=== PATIENT | female | born 1955 | race Caucasian/White ===

== ENCOUNTER 2024-02-14 09:42 | Inpatient (IN) | payer MEDICARE, OTHER ==
[~2024-02-14] VITALS: Ht 149.9 cm; Wt 72.6 kg
[2024-02-14] MEDS ORDERED: METO-356 PO (10:12)
[2024-02-14] MEDS ORDERED: PARO30TA4 PO (10:12)
[2024-02-14] MEDS ORDERED: EVOL420W2 SQ (10:12)
[2024-02-14] MEDS ORDERED: RANO500T6 PO (10:12)
[2024-02-14] MEDS ORDERED: NITR1PAT80 TP (10:12)
[2024-02-14 10:47] LABS: BASOPHILS % (AUTO) 0.4 % (0.0-2.0); EOSINOPHILS % (AUTO) 0.5 % (0.0-7.0); HEMATOCRIT 40.2 % (31.2-41.9); HEMOGLOBIN 13.7 g/dL (10.9-14.3); LYMPHOCYTES % (AUTO) 16.5 % (20.5-51.5); MEAN CORPUSCULAR HGB CONC 34 g/dL (32.3-35.6); MEAN CORPUSCULAR VOLUME 91.3 fL (75.5-95.3); MONOCYTES # (AUTO) 0.4 K/uL (0.1-1.30); MONOCYTES % (AUTO) 6.6 % (0.0-11.0); NEUTROPHILS # (AUTO) 4.5 K/uL (1.8-8.9); PLATELET COUNT (AUTO) 206 K/uL (179-408)
[2024-02-14 10:48] LABS: DIFFERENTIAL COMMENT 1
[2024-02-14] MEDS ORDERED: IV NORMAL SALINE 250 ML IV ONE (10:49)
[2024-02-14] MEDS ORDERED: IOHEXOL 350 100 ML INFUS..BTL ONE (10:49)
[2024-02-14] MEDS ORDERED: SWABABLE VALVE TRANSFER SET EA MC ONE (10:49)
[2024-02-14 10:50] LABS: CALCIUM 9.2 mg/dL (8.5-10.1); CARBON DIOXIDE 26 mmol/L (21-32); CHLORIDE 102 mmol/L (98-107); GLUCOSE 115 mg/dL (74-106); POTASSIUM 4.6 mmol/L (3.5-5.1); SODIUM SERUM 139 mmol/L (136-145); UREA NITROGEN, BLOOD 18 mg/dL (7-18)
[2024-02-14 11:00] LABS: ALANINE AMINOTRANSFERASE 20 U/L (14-59); ALBUMIN 4.1 g/dL (3.4-5.0); ALKALINE PHOSPHATASE 81 U/L (50-136); ASPARTATE AMINOTRANSFERASE 11 U/L (15-37); BILIRUBIN,DIRECT 0.2 mg/dL (0.0-0.2); BILIRUBIN,TOTAL 0.6 mg/dL (0.2-1.0); TOTAL PROTEIN, SERUM 7.7 g/dL (6.4-8.2)
[2024-02-14 13:59] LABS: *BILIRUBIN,URIN NEGATIVE (NEGATIVE); *CLARITY,URINE CLEAR (CLEAR); *COLOR,URINE YELLOW (YELLOW); *KETONES,URINE NEGATIVE (NEGATIVE); *PROTEIN,URINE NEGATIVE (NEGATIVE); *UROBILINOGEN,URINE 0.2 E.U./dl (NORMAL); LEUKOCYTE ESTERASE ,URINE NEGATIVE (NEGATIVE); NITRITE, URINE NEGATIVE (NEGATIVE); PH,URINE 7.5 (5.0-8.0); UGLUCOSE NEGATIVE (NEGATIVE)
[2024-02-14 14:06] LABS: *BLOOD, URINE TRACE (NEGATIVE)
[2024-02-14 14:23] LABS: *AMPHETAMINE, URINE NEGATIVE (NEGATIVE); *BARBITURATE, URINE NEGATIVE (NEGATIVE); *BENZODIAZEPINE, URINE NEGATIVE (NEGATIVE); *CANNABINOID, URINE NEGATIVE (NEGATIVE); *COCCAINE, URINE NEGATIVE (NEGATIVE); *OPIATE, URINE NEGATIVE (NEGATIVE); *PHENCYCLIDINE SCREEN,URINE NEGATIVE (NEGATIVE); FENTANYL, URINE NEGATIVE (NEGATIVE)
[2024-02-14 14:45] LABS: BACTERIA,URINE MODERATE /HPF (NONE SEEN); WBC,URINE 0-3 /HPF (0-3)
[2024-02-14 16:30] VITALS: BP 109/54; TEMP 98.4; O2SAT 96
[2024-02-14] MEDS ORDERED: BLOOD SUGAR DIAGNOSTIC 1 EACH STRIP VI SCH (16:30)
[2024-02-14] MEDS ORDERED: DEXTROSE 50% 50 ML DISP.SYRIN IV PRN (16:45)
[2024-02-14] MEDS ORDERED: INSULIN REGULAR, HUMAN 300 UNIT/3 ML VIAL SQ PRN (16:45)
[2024-02-14] MEDS: RANOLAZINE 500 MG TAB.ER.12H PO SCH (17:27)
[2024-02-14 20:00] VITALS: BP 105/33; TEMP 97.4; O2SAT 97
[2024-02-14] MEDS: BLOOD SUGAR DIAGNOSTIC 1 EACH STRIP VI SCH (20:54)
[2024-02-14] MEDS: SIMVASTATIN 20 MG TABLET PO SCH (20:54)
[2024-02-14] MEDS ORDERED: SIMVASTATIN 40 MG TABLET PO SCH (21:00)
[2024-02-15] VITALS (7 sets, daily range): BP systolic 104–138; BP diastolic 37–66; TEMP 97.6–98.5; O2SAT 94–99
[2024-02-15 06:43] LABS: BASOPHILS % (AUTO) 0.5 % (0.0-2.0); EOSINOPHILS # (AUTO) 0.1 K/uL (0.0-0.7); EOSINOPHILS % (AUTO) 1.1 % (0.0-7.0); HEMATOCRIT 38.9 % (31.2-41.9); HEMOGLOBIN 13.3 g/dL (10.9-14.3); MEAN CORPUSCULAR HEMOGLOBIN 31.3 uug (24.7-32.8); MEAN CORPUSCULAR HGB CONC 34 g/dL (32.3-35.6); MEAN CORPUSCULAR VOLUME 91.6 fL (75.5-95.3); MONOCYTES # (AUTO) 0.5 K/uL (0.1-1.30); MONOCYTES % (AUTO) 7.9 % (0.0-11.0); NEUTROPHILS # (AUTO) 3.9 K/uL (1.8-8.9); NEUTROPHILS % (AUTO) 59.5 % (38.5-71.5); PLATELET COUNT (AUTO) 217 K/uL (179-408); RED BLOOD CELL COUNT(AUTO) 4.25 MIL/uL (3.63-4.92); RED CELL DISTRIBUTION WIDTH 13.8 % (12.3-17.7); WHITE BLOOD COUNT (AUTO) 6.5 K/uL (3.8-11.8)
[2024-02-15 06:52] LABS: DIFFERENTIAL COMMENT 1
[2024-02-15 07:08] LABS: CALCIUM 8.7 mg/dL (8.5-10.1); CREATININE 0.8 mg/dL (0.6-1.3); POTASSIUM 3.9 mmol/L (3.5-5.1)
[2024-02-15] MEDS ORDERED: PAROXETINE HCL 30 MG PO SCH (09:00)
[2024-02-15] MEDS: ASPIRIN 81 MG TAB.CHEW PO SCH (09:25)
[2024-02-15] MEDS: PAROXETINE HCL 10 MG TABLET PO SCH (09:25)
[2024-02-16 00:24] VITALS: BP 120/61; TEMP 98; O2SAT 96
[2024-02-16 06:17] VITALS: BP 113/58; TEMP 97.7; O2SAT 97
[2024-02-16 06:31] LABS: BASOPHILS % (AUTO) 0.6 % (0.0-2.0); EOSINOPHILS # (AUTO) 0.1 K/uL (0.0-0.7); EOSINOPHILS % (AUTO) 1.1 % (0.0-7.0); HEMATOCRIT 38.8 % (31.2-41.9); HEMOGLOBIN 13.3 g/dL (10.9-14.3); LYMPHOCYTES % (AUTO) 34.2 % (20.5-51.5); MEAN CORPUSCULAR HEMOGLOBIN 31.2 uug (24.7-32.8); MEAN CORPUSCULAR HGB CONC 34 g/dL (32.3-35.6); MONOCYTES # (AUTO) 0.4 K/uL (0.1-1.30); MONOCYTES % (AUTO) 7.3 % (0.0-11.0); NEUTROPHILS # (AUTO) 3.3 K/uL (1.8-8.9); NEUTROPHILS % (AUTO) 56.8 % (38.5-71.5); PLATELET COUNT (AUTO) 206 K/uL (179-408); RED BLOOD CELL COUNT(AUTO) 4.26 MIL/uL (3.63-4.92); RED CELL DISTRIBUTION WIDTH 13.6 % (12.3-17.7); WHITE BLOOD COUNT (AUTO) 5.9 K/uL (3.8-11.8)
[2024-02-16 06:45] LABS: DIFFERENTIAL COMMENT 1
[2024-02-16 07:00] LABS: CREATININE 0.7 mg/dL (0.6-1.3); POTASSIUM 4.2 mmol/L (3.5-5.1)
[2024-02-16 07:56] VITALS: BP 120/63; TEMP 98.1; O2SAT 100
[2024-02-16] MEDS: ALPRAZOLAM 0.5 MG TABLET PO ONE (08:38)
[2024-02-16] MEDS: CLOPIDOGREL 75 MG TABLET PO SCH (08:38)
[2024-02-16 12:00] VITALS: BP 116/69; TEMP 98.3; O2SAT 97
[2024-02-16] MEDS: MAGNESIUM HYDROXIDE 30 ML LIQUID UDC PO PRN (13:08)
[2024-02-16 16:16] VITALS: BP 118/73; TEMP 98.1; O2SAT 97
[2024-02-16] MEDS ORDERED: SIMV-46 PO (18:07)
[2024-02-16] MEDS ORDERED: CLOP75TA33 PO (18:07)
[2024-02-16] MEDS ORDERED: ASPI81TA31 PO (18:07)
[2024-02-17] MEDS ORDERED: MIRALAX 17 GM POWD.PACK PO SCH (09:00)
== END 2024-02-16 18:20 | disposition home or self-care (01) | DRG 300 ==
LOC: ER 09:42 → TELE3 12:00
PROVIDERS: ADMIT Nurse Practitioner Acute Care; ATTEND Nurse Practitioner Acute Care
DX: I77.71 Dissection of carotid artery (principal); G45.9 Transient cerebral ischemic attack, unspecified; I38 Endocarditis, valve unspecified; I10 Essential (primary) hypertension; H53.2 Diplopia; I25.10 Atherosclerotic heart disease of native coronary artery without angina pectoris; Z95.5 Presence of coronary angioplasty implant and graft; E66.9 Obesity, unspecified; Z68.32 Body mass index [BMI] 32.0-32.9, adult; R20.0 Anesthesia of skin; R27.0 Ataxia, unspecified; F41.9 Anxiety disorder, unspecified; K21.9 Gastro-esophageal reflux disease without esophagitis; Z79.899 Other long term (current) drug therapy
CPT/HCPCS: 36415; 70450; 70496; 70551; 84443; 84484; 85025; 85730; 93005; 93307; A4606; A4663; G0378; J1815; Q9967